=== PATIENT | male | born 1970 | race African-American/Black ===

== ENCOUNTER 2020-04-15 13:56 | Emergency (ER) | payer MEDICAID, OTHER ==
[~2020-04-15] VITALS: Ht 175.3 cm; Wt 111.1 kg
[2020-04-15 14:23] VITALS: BP 105/83
[2020-04-15] MEDS ORDERED: traMADol HCL 50 MG TAB PO ONE (18:15)
== END 2020-04-15 18:51 | disposition home or self-care (01) ==
LOC: ER 13:56
DX: M54.9 Dorsalgia, unspecified (principal); R50.9 Fever, unspecified; R06.02 Shortness of breath; I10 Essential (primary) hypertension; E78.5 Hyperlipidemia, unspecified; Z20.828 Contact with and (suspected) exposure to other viral communicable diseases
CPT/HCPCS: 71045; 82962; 87635

== ENCOUNTER 2022-02-13 21:03 | Emergency (ER) | payer MEDICAID ==
[~2022-02-13] VITALS: Ht 175.3 cm; Wt 108.9 kg
[2022-02-14] MEDS ORDERED: AZITHROMYCIN 250 MG TAB PO ONE (00:15)
[2022-02-14] MEDS ORDERED: BENZ100C19 PO (02:04)
[2022-02-14] MEDS ORDERED: AZITTAB PO (02:04)
[2022-02-14 02:24] VITALS: BP 124/76
== END 2022-02-14 02:33 | disposition home or self-care (01) ==
LOC: ER 21:03
DX: S82.51XA Displaced fracture of medial malleolus of right tibia, initial encounter for closed fracture (principal); J18.9 Pneumonia, unspecified organism; I10 Essential (primary) hypertension; R51.9 Headache, unspecified; E78.5 Hyperlipidemia, unspecified; Z20.822 Contact with and (suspected) exposure to COVID-19; X58.XXXA Exposure to other specified factors, initial encounter; Y93.89 Activity, other specified; Y92.89 Other specified places as the place of occurrence of the external cause; Y99.8 Other external cause status
CPT/HCPCS: 36415; 70480; 71046; 73610

== ENCOUNTER 2022-06-16 12:48 | Emergency (ER) | payer MEDICAID ==
[~2022-06-16] VITALS: Ht 175.3 cm; Wt 116.0 kg
[~2022-06-16 12:48] MED LIST: AZITTAB PO; BENZ100C19 PO
[2022-06-16] MEDS ORDERED: KETOROLAC TROMETH 30 MG/ML 1ML VIAL IV ONE (13:45)
[2022-06-16] MEDS ORDERED: SODIUM CHLORIDE 0.9% 1,000 ML IV ONE ×2 (13:45)
[2022-06-16 14:09] LABS: Urine Bacteria NONE SEEN /hpf (None Seen); Urine Blood 3+ /uL (Negative); Urine Mucus FEW (None Seen); Urine Specific Gravity 1.032 (1.001-1.035); Urine WBC 2 /hpf (0 - 3)
[2022-06-16 14:17] LABS: Basophils # (auto) 0.1 10 ^3/uL (0-0.2); Eosinophils # (auto) 0.3 10 ^3/uL (0-0.8); Hemoglobin 14.8 g/dL (13.5-17.5); Neutrophils # (auto) 4.4 10 ^3/uL (1.6-8.6); Nucleated Red Blood Cells % 0.1 %; White Blood Cell 9.7 10^3/uL (4.4-10.8)
[2022-06-16 14:19] LABS: Basophils % (auto) 1.1 % (0.0-2.0); Eosinophils % (auto) 3.5 % (0.0-7.0); Hematocrit 46.2 % (41.0-53.0); Lymphocytes % (auto) 41.5 % (10.0-50.0); Mean Corpuscular Hemoglobin 26.3 pg (28.0-32.0); Mean Corpuscular Volume 82.3 fL (80.0-100.0); Monocytes # (auto) 0.8 10 ^3/uL (0-1.3); Monocytes % (auto) 8.2 % (0.0-12.0); Neutrophils % (auto) 45.7 % (37.0-80.0); Red Blood Cells 5.62 10^6/uL (4.5-5.90); Red Cell Distribution Width 14.6 % (11.8-14.3)
[2022-06-16 14:34] LABS: Albumin 3.9 g/dL (3.4-5.0); Calcium 9.3 mg/dL (8.5-10.1); Potassium 3.6 mmol/L (3.5-5.1)
[2022-06-16 14:37] LABS: Bilirubin, Total 0.3 mg/dL (0.2-1.0); Total Protein 7.6 g/dL (6.4-8.2)
[2022-06-16] MEDS ORDERED: TAMSULOSIN HYDROCHLORIDE 0.4 MG CAP PO ONE (15:00)
[2022-06-16] MEDS ORDERED: HYDROcodone-ACET 10/325MG TAB PO ONE (15:30)
[2022-06-16 15:35] VITALS: BP 152/92
== END 2022-06-16 15:37 | disposition home or self-care (01) ==
LOC: ER 12:48
DX: N20.0 Calculus of kidney (principal); I10 Essential (primary) hypertension; E78.5 Hyperlipidemia, unspecified; Z79.2 Long term (current) use of antibiotics; Z79.899 Other long term (current) drug therapy
CPT/HCPCS: 36415; 74176; 80053; 81001; 84484; 85025; 96361; 96374; 99284; J1885; J7030